=== PATIENT | female | born 1970 | race Caucasian/White ===

== ENCOUNTER 2016-12-23 07:00 | Emergency (ER) | payer OTHER ==
[2016-12-23 07:06] VITALS: BP 146/95
== END 2016-12-23 08:28 | disposition home or self-care (01) ==
LOC: ED 07:00
DX: J02.9 Acute pharyngitis, unspecified (principal); M79.1 Myalgia

== ENCOUNTER 2017-05-13 16:44 | Emergency (ER) | payer BC ==
[~2017-05-13] VITALS: Ht 167.6 cm; Wt 91.6 kg
[2017-05-13 17:13] VITALS: Ht 167.6 cm; Wt 91.6 kg
[2017-05-13 18:43] VITALS: BP 144/89
== END 2017-05-13 18:43 | disposition home or self-care (01) ==
LOC: ED 16:44
DX: J06.9 Acute upper respiratory infection, unspecified (principal); Z90.710 Acquired absence of both cervix and uterus

== ENCOUNTER 2017-09-09 02:26 | Emergency (ER) | payer BC ==
[~2017-09-09] VITALS: Ht 167.6 cm; Wt 72.3 kg
[2017-09-09 03:05] VITALS: Ht 167.6 cm; Wt 72.3 kg
[2017-09-09 03:59] LABS: BASOPHIL % 0.3 % (0-2); PLATELET COUNT 214 x10^3mcL (130-400); RED CELL DISTRIBUTION WIDTH 13.4 % (11.5-14.5)
[2017-09-09 04:06] LABS: UA SPECIFIC GRAVITY >=1.030 (1.005-1.035); microscopic required? YES; urine erythrocyte NEGATIVE (NEGATIVE)
[2017-09-09 04:11] LABS: CALCIUM 9.4 mg/dL (8.5-10.1); CARBON DIOXIDE 25.3 mmol/L (21-32); CHLORIDE SERUM 104 mmol/L (98-107); CREATININE SERUM 0.7 mg/dL (0.6-1.0); GFR1 > 60 mL/min; GLUCOSE SERUM 151 mg/dL (74-106); POTASSIUM SERUM 4.6 mmol/L (3.5-5.1); SODIUM SERUM 138 mmol/L (136-145)
[2017-09-09 04:19] LABS: ALBUMIN 4.1 g/dL (3.4-5.0); ALKALINE PHOSPHATASE 111 U/L (46-116); ALT/SGPT 46 U/L (14-59); AST/SGOT 34 U/L (15-37); BILIRUBIN TOTAL 0.5 mg/dL (0.20-1.00); LIPASE 118 IU/L (73-393); TOTAL PROTEIN, SERUM 8.2 g/dL (6.4-8.2)
[2017-09-09 06:41] VITALS: BP 134/74
== END 2017-09-09 06:41 | disposition home or self-care (01) ==
LOC: ED 02:26
PROVIDERS: Emergency Medicine
DX: R10.84 Generalized abdominal pain (principal); R11.10 Vomiting, unspecified; R19.7 Diarrhea, unspecified; Z90.710 Acquired absence of both cervix and uterus
CPT/HCPCS: J2270; J2765; J7030